=== PATIENT | female | born 1935 | race Caucasian/White ===

== ENCOUNTER 2021-01-01 18:50 | Inpatient (IN) | payer MEDICARE, MEDICAID ==
[~2021-01-01] VITALS: Ht 144.8 cm; Wt 38.6 kg
[~2021-01-01 18:50] MED LIST: LIDOcaine 1% 30ml preserv. free vial ONE
[2021-01-01] MEDS ORDERED: propofol 1000mg/100ml bottle 100 ML IV PRN (20:10)
[2021-01-01] MEDS ORDERED: fentaNYL/PF 50MCG/1 ML 2ML syringe IV ONE (20:10)
--- NOTE | 2021-01-01 20:18 | NUR ---
pt takes asa, amlodipine, synthroid and atorvastatin at home. pt family not sure of dosage as medications are at home.
[2021-01-01] MEDS ORDERED: propofol 10mg/ml 20ml vial IV ONE (21:00)
--- NOTE | 2021-01-01 21:20 | NUR ---
sling placed to left shoulder
[2021-01-02 00:09] LABS: ALANINE AMINOTRANSFERASE 21 U/L (12-78); ALBUMIN 2.6 G/DL (3.4-5.0); ALBUMIN/GLOBULIN RATIO 0.6 (1.1-1.5); ALKALINE PHOSPHATASE 85 IU/L (46-116); ANION GAP 16 (8-16); ASPARTATE AMINO TRANSFERASE 54 U/L (10-37); BILIRUBIN,TOTAL 0.4 MG/DL (0.1-1.0); BLOOD UREA NITROGEN 40 MG/DL (7-18); BUN/CREATININE RATIO 35.7 (6.6-38.0); CALCIUM 7.9 MG/DL (8.5-10.1); CHLORIDE 107 MMOL/L (99-107); CREATININE 1.12 MG/DL (0.40-0.90); GLUCOSE 122 MG/DL (70-104); POTASSIUM 4.7 MMOL/L (3.5-5.1); SODIUM 143 MMOL/L (135-145); TOTAL CARBON DIOXIDE 20.4 MMOL/L (24-32); TOTAL PROTEIN 7.1 G/DL (6.4-8.2); eGFR 46 ML/MIN
[2021-01-02 00:12] LABS: TROPONIN I < 0.04 NG/ML (0.0-0.05)
[2021-01-02 00:56] LABS: BASOPHILS # (AUTO) 0.1 X10'3 (0-0.2); MONOCYTES # (AUTO) 0.8 X10'3 (0-0.9)
[2021-01-02 00:59] LABS: BASOPHILS % (AUTO) 0.3 % (0-1); EOSINOPHILS # (AUTO) 0.3 X10'3 (0-0.9); EOSINOPHILS % (AUTO) 1.7 % (0-6); HEMATOCRIT 31.1 % (35.0-45.0); HEMOGLOBIN 9.7 g/dl (12.0-16.0); LYMPHOCYTES # (AUTO) 1.7 X10'3 (1.1-4.8); LYMPHOCYTES % (AUTO) 9.1 % (21-51); MEAN CORPUSCULAR HEMOGLOBIN 28.3 PG (27.0-31.0); MEAN CORPUSCULAR HGB CONC 31.3 g/dL (33.0-36.5); MEAN CORPUSCULAR VOLUME 90.3 FL (78-98); MEAN PLATELET VOLUME 7.9 FL (7.4-10.4); MONOCYTES % (AUTO) 4.3 % (2-12); NEUTROPHILS # (AUTO) 15.7 X10'3 (1.8-7.7); NEUTROPHILS % (AUTO) 84.6 % (42-75); RED BLOOD COUNT 3.44 X10'6 (4.20-5.60); WHITE BLOOD COUNT 18.5 X10'3 (4.5-11.0)
[2021-01-02 01:20] LABS: PLATELET COUNT 1002 X10'3 (140-440)
[2021-01-02 01:33] LABS: UA COLLECTION TYPE STRAIGHT CATH
[2021-01-02 01:34] LABS: CLARITY,URINE CLEAR (Clear); COLOR,URINE YELLOW (Yellow)
[2021-01-02 01:35] LABS: GLUCOSE, URINE NEGATIVE (Neg); KETONES,URINE 80 mg/dl (Neg); LEUKOCYTE ESTERASE ,URINE NEGATIVE (Neg); NITRITES, URINE NEGATIVE (Neg); OCCULT BLOOD,URINE NEGATIVE (Neg); PROTEIN,URINE NEGATIVE (Neg); UROBILINOGEN,URINE 0.2 E.U/dL (0.2-1.0)
[2021-01-02 02:49] LABS: TOTAL CELLS COUNTED 100
[2021-01-02 02:50] LABS: ANISOCYTOSIS 1+; GIANT PLATELET FEW; LARGE PLATELETS MODERATE; PLATELET ESTIMATE INCREASED; TEAR DROP CELLS FEW
[2021-01-02 02:51] LABS: ELLIPTOCYTES FEW
[2021-01-02] MEDS ORDERED: LEVO50TA PO (03:18)
[2021-01-02] MEDS ORDERED: ASPI81TA52 PO (03:20)
[2021-01-02] MEDS ORDERED: SIMV-42 PO (03:21)
[2021-01-02] MEDS ORDERED: AMLO-93 PO (03:22)
[2021-01-02] MEDS ORDERED: diphenhydrAMINE 25mg capsule PO PRN (03:35)
[2021-01-02] MEDS ORDERED: ipratropium/albuterol 3ml nebule NEB PRN (03:35)
[2021-01-02] MEDS ORDERED: diphenhydrAMINE 50 mg/ml inj IV PRN (03:35)
[2021-01-02] MEDS ORDERED: ondansetron 4mg rapidly disintigrating tab PO PRN (03:35)
[2021-01-02] MEDS ORDERED: HYDROmorphone inj. 0.5 MG/0.5 ML DISP.SYRIN IV PRN (03:35)
[2021-01-02] MEDS ORDERED: morphine 2 MG/ML inj. syringe IV PRN (03:35)
[2021-01-02] MEDS ORDERED: acetaminophen 650mg rectal suppository RC PRN (03:35)
[2021-01-02] MEDS ORDERED: bisacodyl 10mg suppository rectal RC PRN (03:35)
[2021-01-02] MEDS ORDERED: ondansetron/PF 4mg/2ml inj IV PRN (03:35)
[2021-01-02] MEDS ORDERED: magnesium hydroxide 30ml (MOM) UD suspension PO PRN (03:35)
[2021-01-02] MEDS ORDERED: acetaminophen 325mg tablet PO PRN (03:35)
[2021-01-02] MEDS ORDERED: mag hydrox/Alum hydrox/simeth 30ml oral suspension PO PRN (03:35)
[2021-01-02 04:01] LABS: PARTIAL THROMBOPLASTIN TIME 27 SECONDS (22-32)
[2021-01-02 04:03] LABS: HEMOGLOBIN A1C 5.6 % (4.5-6.2)
[2021-01-02] MEDS: dextrose 5%-1/2 normal saline 1,000 ML IV SCH ×3 (04:11→23:35)
[2021-01-02 04:24] LABS: LIPASE 197 U/L (73-393); PHOSPHORUS 3.5 MG/DL (2.3-4.5)
[2021-01-02 04:26] LABS: CREATINE KINASE 1691 U/L (26-192)
[2021-01-02] MEDS ORDERED: ALBUTEROL INHALER 1 PUFF/90 MCG INHALER IH PRN (05:45)
--- NOTE | 2021-01-02 06:43 | NUR ---
[facility] [phone]
[2021-01-02] MEDS: dexamethasone inj 6 MG in normal saline 50ml IV soln 50 ML IV SCH (07:14)
--- NOTE | 2021-01-02 09:05 | NUR ---
SPOKE TO PTS SON ED. STATES, SHE HASNT BEEN EATING MUCH IN LAST 2 WEEKS. HE FEEDS HER TO GET SOMETHING DOWN. PT HAS BEEN COMPLAINING OF LEFT KNEE AND LEG.
[2021-01-02] MEDS: heparin, porcine 5000 units/ml vial SQ SCH ×2 (09:49→21:26)
[2021-01-02] MEDS: aspirin 81mg, enteric-coated 1 TAB TABLET.DR PO SCH (09:49)
[2021-01-02] MEDS: docusate sod 100mg capsule PO SCH ×2 (09:49→21:25)
[2021-01-02] MEDS: levoTHYROXINE 25mcg tablet PO SCH (09:50)
[2021-01-02] MEDS: azithromycin/NS 500mg/250ml 250 ML IV SCH (09:50)
[2021-01-02] MEDS: amLODIPine 5mg tablet PO SCH (09:50)
[2021-01-02] MEDS: CefTRIAXone/D5W-Rocephin 1gm 50 ML IV SCH (09:51)
[2021-01-02] MEDS: lisinopril 20mg tablet PO SCH (09:52)
[2021-01-02] MEDS: pantoprazole 40mg Tablet.DR PO SCH (09:57)
[2021-01-02] MEDS: HYDROcodone/acetaminophen 5mg/325mg tablet PO PRN ×2 (12:34→21:38)
--- NOTE | 2021-01-02 17:09 | NUR ---
RENETTA BEDOYA (SON) [phone] PLEASE CALL WITH ANY CHANGES OR QUESTIONS
--- NOTE | 2021-01-02 21:21 | NUR ---
Pts IV infiltrated and iv found migrated out slightly. IV DC'd and new 20g iv to r fa placed and labs drawn. Pt with RA sats 94%. Penaloza catheter remains in place.
[2021-01-02] MEDS: lactobacillus rhamnosus 10,000 MMU CELLS/CAPSULE PO SCH (21:26)
[2021-01-02] MEDS: atorvastatin 10mg tablet PO SCH (21:26)
[2021-01-02 21:44] LABS: EOSINOPHILS # (AUTO) 0.2 X10'3 (0-0.9); HEMATOCRIT 33.2 % (35.0-45.0); HEMOGLOBIN 10.4 g/dl (12.0-16.0); MEAN CORPUSCULAR HGB CONC 31.4 g/dL (33.0-36.5); RED CELL DISTRIBUTION WIDTH 16.1 % (11.5-14.5)
[2021-01-02 21:45] LABS: BASOPHILS # (AUTO) 0.2 X10'3 (0-0.2); BASOPHILS % (AUTO) 0.7 % (0-1); LYMPHOCYTES # (AUTO) 1.8 X10'3 (1.1-4.8); LYMPHOCYTES % (AUTO) 8.9 % (21-51); MEAN CORPUSCULAR HEMOGLOBIN 27.3 PG (27.0-31.0); MEAN CORPUSCULAR VOLUME 86.9 FL (78-98); MEAN PLATELET VOLUME 7.8 FL (7.4-10.4); MONOCYTES # (AUTO) 0.8 X10'3 (0-0.9); MONOCYTES % (AUTO) 3.7 % (2-12); NEUTROPHILS # (AUTO) 17.5 X10'3 (1.8-7.7); NEUTROPHILS % (AUTO) 85.7 % (42-75); RED BLOOD COUNT 3.82 X10'6 (4.20-5.60); WHITE BLOOD COUNT 20.5 X10'3 (4.5-11.0)
[2021-01-02 21:53] LABS: PLATELET COUNT 1068 X10'3 (140-440)
--- NOTE | 2021-01-02 22:03 | NUR ---
Pts son Sincere Sullivan, calling for update ([phone]). Pt lives with him. He reports Pt is at times able to make her needs known, but not always and she has been declining mentally over the past year. Pt with significant weakness and increasing falls recently. She speaks and understands minimal Welsh and speaks Israeli. He expects to be here around 11 am in the morning. He is greatful that Pt has a tracey in place. He states she uses a walker at baseline but can be unsteady and will struggle now with the left arm injury. Asked if she will need a special diet, more culturally appropriate, and he states no. Only that she has minimal appitite recently. Pt also needs her glasses at all times as she has very poor vision. Pt with stable vs and is awaiting ipa.
--- NOTE | 2021-01-02 22:16 | NUR ---
SPOKE WITH DR LEE ABOUT PT CRITICAL LAB PLATELET. DR LEE WANTS TO CONTINUE CURRENT MEDICATION REGIMEN WITHOUT ANY CHANGES AT THIS TIME IN ORDER TO GET PLATELET COUNT WNL
--- NOTE | 2021-01-02 22:16 | NUR ---
Pts son also asking me if Orthopedics had been consulted. I reviewed the notes and only saw that Dr. Samson , in admission notes, wrote that Pt may need Ortho consult. I told son I would pass this on the Day RN and if he could readdress this when he is here tomorrow.
[2021-01-02 22:17] LABS: ALANINE AMINOTRANSFERASE 25 U/L (12-78); ALBUMIN 2.9 G/DL (3.4-5.0); ALBUMIN/GLOBULIN RATIO 0.6 (1.1-1.5); ALKALINE PHOSPHATASE 87 IU/L (46-116); ANION GAP 15 (8-16); ASPARTATE AMINO TRANSFERASE 57 U/L (10-37); BILIRUBIN,TOTAL 0.4 MG/DL (0.1-1.0); BLOOD UREA NITROGEN 32 MG/DL (7-18); BUN/CREATININE RATIO 34.8 (6.6-38.0); CHLORIDE 108 MMOL/L (99-107); CREATININE 0.92 MG/DL (0.40-0.90); GLUCOSE 143 MG/DL (70-104); POTASSIUM 4.1 MMOL/L (3.5-5.1); SODIUM 146 MMOL/L (135-145); TOTAL CARBON DIOXIDE 23.2 MMOL/L (24-32); TOTAL PROTEIN 7.7 G/DL (6.4-8.2); TROPONIN I < 0.04 NG/ML (0.0-0.05); eGFR 58 ML/MIN
[2021-01-02 22:21] LABS: BANDS% (MANUAL) 6 % (0-10); LYMPHOCYTES % (MANUAL) 8 % (21-51); NEUTROPHILS % (MANUAL) 79 % (42-75); TOTAL CELLS COUNTED 100
[2021-01-02 22:22] LABS: ANISOCYTOSIS 1+; EOSINOPHILS % (MANUAL) 1 % (0-6); METAMYLEOCYTES% (MANUAL) 3 % (0-0); MONOCYTES % (MANUAL) 2 % (2-12); MYELOCYTES % (MANUAL) 1 % (0-0); PLATELET ESTIMATE INCREASED
--- NOTE | 2021-01-03 01:43 | NUR ---
Pts RA sats while sleeping 90%. placed on 2 l nc and sats 945. Otherwise vss.
[2021-01-03 06:38] LABS: BASOPHILS # (AUTO) 0.1 X10'3 (0-0.2); BASOPHILS % (AUTO) 0.7 % (0-1); EOSINOPHILS # (AUTO) 0.2 X10'3 (0-0.9); EOSINOPHILS % (AUTO) 1.1 % (0-6); HEMATOCRIT 26.4 % (35.0-45.0); HEMOGLOBIN 8.6 g/dl (12.0-16.0); LYMPHOCYTES # (AUTO) 1.4 X10'3 (1.1-4.8); LYMPHOCYTES % (AUTO) 9.1 % (21-51); MEAN CORPUSCULAR HEMOGLOBIN 28.6 PG (27.0-31.0); MEAN CORPUSCULAR HGB CONC 32.5 g/dL (33.0-36.5); MEAN CORPUSCULAR VOLUME 87.9 FL (78-98); MEAN PLATELET VOLUME 7.6 FL (7.4-10.4); MONOCYTES # (AUTO) 0.6 X10'3 (0-0.9); MONOCYTES % (AUTO) 3.8 % (2-12); NEUTROPHILS # (AUTO) 13.1 X10'3 (1.8-7.7); NEUTROPHILS % (AUTO) 85.3 % (42-75); PLATELET COUNT 813 X10'3 (140-440); RED BLOOD COUNT 3.01 X10'6 (4.20-5.60); RED CELL DISTRIBUTION WIDTH 15.8 % (11.5-14.5); WHITE BLOOD COUNT 15.4 X10'3 (4.5-11.0)
[2021-01-03 06:54] LABS: ALANINE AMINOTRANSFERASE 19 U/L (12-78); ALBUMIN 2.5 G/DL (3.4-5.0); ALBUMIN/GLOBULIN RATIO 0.7 (1.1-1.5); ALKALINE PHOSPHATASE 68 IU/L (46-116); ANION GAP 9 (8-16); ASPARTATE AMINO TRANSFERASE 40 U/L (10-37); BILIRUBIN,TOTAL 0.3 MG/DL (0.1-1.0); BLOOD UREA NITROGEN 30 MG/DL (7-18); BUN/CREATININE RATIO 34.1 (6.6-38.0); CALCIUM 7.5 MG/DL (8.5-10.1); CHLORIDE 112 MMOL/L (99-107); CHOLESTEROL 141 MG/DL (0-200); CREATININE 0.88 MG/DL (0.40-0.90); GLUCOSE 153 MG/DL (70-104); HDL CHOLESTEROL 35 MG/DL (35-60); LDL CHOLESTEROL 63 MG/DL (50-100); POTASSIUM 3.7 MMOL/L (3.5-5.1); SODIUM 144 MMOL/L (135-145); TOTAL PROTEIN 6.2 G/DL (6.4-8.2); TRIGLYCERIDES 233 MG/DL (20-135); eGFR 61 ML/MIN
[2021-01-03] MEDS: dexamethasone inj 6 MG in normal saline 50ml IV soln 50 ML IV SCH (10:56)
[2021-01-03] MEDS: pantoprazole 40mg Tablet.DR PO SCH (11:05)
[2021-01-03] MEDS: lactobacillus rhamnosus 10,000 MMU CELLS/CAPSULE PO SCH ×2 (11:06→21:37)
[2021-01-03] MEDS: aspirin 81mg, enteric-coated 1 TAB TABLET.DR PO SCH (11:06)
[2021-01-03] MEDS: docusate sod 100mg capsule PO SCH ×2 (11:06→21:38)
[2021-01-03] MEDS: heparin, porcine 5000 units/ml vial SQ SCH ×2 (11:07→21:38)
[2021-01-03] MEDS: lisinopril 20mg tablet PO SCH (11:07)
[2021-01-03] MEDS: levoTHYROXINE 25mcg tablet PO SCH (11:07)
[2021-01-03] MEDS: dextrose 5%-1/2 normal saline 1,000 ML IV SCH ×2 (11:08→21:38)
[2021-01-03] MEDS: amLODIPine 5mg tablet PO SCH (11:08)
--- NOTE | 2021-01-03 11:11 | NUR ---
Pt is awake and alert. L UE in sling. C/O pain in L UE only when moved. Placed on 8L NC due to pt's O2 sats 82 on 2L. Lungs clear superiorly, diminished and crackles at bases. +moist unproductive cough. Penaloza intact and draining clear prasanth urine. IVF D5 1/2NS @ 100ml/hour.
[2021-01-03] MEDS: CefTRIAXone/D5W-Rocephin 1gm 50 ML IV SCH (11:16)
[2021-01-03] MEDS: azithromycin/NS 500mg/250ml 250 ML IV SCH (12:06)
--- NOTE | 2021-01-03 15:15 | NUR ---
Son at bedside. Pt told her son that she was not hungry.
--- NOTE | 2021-01-03 16:45 | NUR ---
Assisted pt with lunch. She ate 20% of meal.
[2021-01-03 17:07] LABS: NUCLEATED RED BLOOD CELLS 3 /100WBC (0-0); TOTAL CELLS COUNTED 100
[2021-01-03 17:08] LABS: ANISOCYTOSIS 1+; GIANT PLATELET FEW; LARGE PLATELETS FEW; PLATELET ESTIMATE INCREASED; POLYCHROMASIA 1+
[2021-01-03 17:10] LABS: ELLIPTOCYTES 1+; TEAR DROP CELLS FEW
--- NOTE | 2021-01-03 17:58 | NUR ---
Report given to FREDDIE Robles.
[2021-01-03 18:30] VITALS: BP 138/62
--- NOTE | 2021-01-03 18:44 | NUR ---
Care released to Lindy FRAZIER
--- NOTE | 2021-01-03 18:50 | NUR ---
Patient in room ORTHO 4010. I have received report from Margaret FRAZIER and had the opportunity to ask questions and assume patient care.
--- NOTE | 2021-01-03 21:30 | NUR ---
Pt speaks Cambodian, per pt and family request son Ed able to translate. I called Ed by phone with number provided in the chart. I updated him on his moms care and was able to go over the medications orders for her. He was able to translate this to the patient, using the hospital phone at bedside. She accepted and had the chance to ask questions. I also was able to address any other needs at this time, the patient states she is comfortable and ready to go to sleep. Son Ed said to call for any further needs or change in his moms status.
[2021-01-03] MEDS: atorvastatin 10mg tablet PO SCH (21:37)
[2021-01-03 22:00] VITALS: BP 127/63
[2021-01-04 02:00] VITALS: BP 138/74
[2021-01-04] MEDS: dextrose 5%-1/2 normal saline 1,000 ML IV SCH ×2 (05:41→17:17)
--- NOTE | 2021-01-04 06:20 | NUR ---
Problems reprioritized. Patient report given, questions answered & plan of care reviewed with Yue FRAZIER.
[2021-01-04 07:00] VITALS: BP 128/90
[2021-01-04 07:35] LABS: BASOPHILS # (AUTO) 0.1 X10'3 (0-0.2); BASOPHILS % (AUTO) 0.4 % (0-1); EOSINOPHILS # (AUTO) 0.2 X10'3 (0-0.9); HEMATOCRIT 27.9 % (35.0-45.0); LYMPHOCYTES # (AUTO) 1.7 X10'3 (1.1-4.8); LYMPHOCYTES % (AUTO) 10.4 % (21-51); MEAN CORPUSCULAR HEMOGLOBIN 28.3 PG (27.0-31.0); MEAN CORPUSCULAR HGB CONC 32.1 g/dL (33.0-36.5); MEAN PLATELET VOLUME 7.4 FL (7.4-10.4); MONOCYTES # (AUTO) 0.5 X10'3 (0-0.9); MONOCYTES % (AUTO) 3.1 % (2-12); NEUTROPHILS # (AUTO) 13.6 X10'3 (1.8-7.7); NEUTROPHILS % (AUTO) 85.1 % (42-75); PLATELET COUNT 792 X10'3 (140-440); RED BLOOD COUNT 3.17 X10'6 (4.20-5.60); RED CELL DISTRIBUTION WIDTH 15.9 % (11.5-14.5)
[2021-01-04 07:51] LABS: ALANINE AMINOTRANSFERASE 18 U/L (12-78); ALBUMIN 2.4 G/DL (3.4-5.0); ALBUMIN/GLOBULIN RATIO 0.6 (1.1-1.5); ALKALINE PHOSPHATASE 70 IU/L (46-116); ANION GAP 7 (8-16); ASPARTATE AMINO TRANSFERASE 33 U/L (10-37); BILIRUBIN,TOTAL 0.3 MG/DL (0.1-1.0); BLOOD UREA NITROGEN 20 MG/DL (7-18); BUN/CREATININE RATIO 21.5 (6.6-38.0); CALCIUM 7.2 MG/DL (8.5-10.1); CHLORIDE 108 MMOL/L (99-107); CREATININE 0.93 MG/DL (0.40-0.90); GLUCOSE 113 MG/DL (70-104); POTASSIUM 3.6 MMOL/L (3.5-5.1); SODIUM 137 MMOL/L (135-145); TOTAL CARBON DIOXIDE 21.6 MMOL/L (24-32); TOTAL PROTEIN 6.3 G/DL (6.4-8.2); eGFR 57 ML/MIN
[2021-01-04] MEDS: pantoprazole 40mg Tablet.DR PO SCH (07:52)
[2021-01-04] MEDS: docusate sod 100mg capsule PO SCH ×2 (07:52→20:47)
[2021-01-04] MEDS: amLODIPine 5mg tablet PO SCH (07:52)
[2021-01-04] MEDS: aspirin 81mg, enteric-coated 1 TAB TABLET.DR PO SCH (07:52)
[2021-01-04] MEDS: levoTHYROXINE 25mcg tablet PO SCH (07:52)
[2021-01-04] MEDS: lactobacillus rhamnosus 10,000 MMU CELLS/CAPSULE PO SCH ×2 (07:52→20:47)
[2021-01-04] MEDS: heparin, porcine 5000 units/ml vial SQ SCH ×2 (07:53→20:48)
[2021-01-04] MEDS: dexamethasone inj 6 MG in normal saline 50ml IV soln 50 ML IV SCH (07:53)
[2021-01-04] MEDS: lisinopril 20mg tablet PO SCH (07:53)
[2021-01-04 09:04] LABS: NUCLEATED RED BLOOD CELLS 2 /100WBC (0-0); PLATELET ESTIMATE INCREASED; TOTAL CELLS COUNTED 100
[2021-01-04 09:10] LABS: GIANT PLATELET FEW; LARGE PLATELETS FEW
[2021-01-04 09:15] LABS: ELLIPTOCYTES 1+
[2021-01-04 09:16] LABS: TEAR DROP CELLS FEW
[2021-01-04 09:17] LABS: POLYCHROMASIA FEW
[2021-01-04] MEDS: CefTRIAXone/D5W-Rocephin 1gm 50 ML IV SCH (09:48)
[2021-01-04 11:00] VITALS: BP 119/55
[2021-01-04] MEDS: azithromycin/NS 500mg/250ml 250 ML IV SCH (11:42)
--- NOTE | 2021-01-04 12:26 | NUR ---
POC updated with Son ED
[2021-01-04 14:00] VITALS: BP 114/50
--- NOTE | 2021-01-04 14:42 | NUR ---
Malnutrition consult: Pt admitted s/p fall w/ general weakness and reportedly not eating as well as she used to. Difficulty obtaining accurate hx as pt is non-danish speaking. It has been reported by Pt's son that she has not been eating well in the last 2 weeks; which is likely d/t covid. Weakness is to L arm injury, no previous wt hx though pt is 100% ideal body weight. No edema noted. Per RN, pt does not appear to be cachectic. At this time pt does not meat minimum criteria for malnutrition Will continue to monitor. Addendum: 01/04/21 at [address] Amended: Links added.
[2021-01-04 18:00] VITALS: BP 123/53
--- NOTE | 2021-01-04 18:23 | NUR ---
Problems reprioritized. Patient report given, questions answered & plan of care reviewed with FREDDIE Israel.
--- NOTE | 2021-01-04 18:37 | NUR ---
Patient in room ORTHO 4010. I have received report from Tierra FRAZIER and had the opportunity to ask questions and assume patient care.
[2021-01-04] MEDS: atorvastatin 10mg tablet PO SCH (20:47)
[2021-01-04 22:00] VITALS: BP 137/65
[2021-01-05 02:00] VITALS: BP 128/58
[2021-01-05] MEDS: dextrose 5%-1/2 normal saline 1,000 ML IV SCH ×3 (03:07→23:25)
--- NOTE | 2021-01-05 06:34 | NUR ---
Problems reprioritized. Patient report given, questions answered & plan of care reviewed with Annemarie FRAZIER.
--- NOTE | 2021-01-05 06:47 | NUR ---
Patient in room ORTHO 4010. I have received report from Lindy FRAZIER and had the opportunity to ask questions and assume patient care.
[2021-01-05 07:00] VITALS: BP 140/65
[2021-01-05 07:28] LABS: EOSINOPHILS # (AUTO) 0.2 X10'3 (0-0.9); EOSINOPHILS % (AUTO) 1.3 % (0-6); HEMOGLOBIN 9.2 g/dl (12.0-16.0); MONOCYTES # (AUTO) 0.4 X10'3 (0-0.9)
[2021-01-05 07:30] LABS: BASOPHILS % (AUTO) 0.3 % (0-1); HEMATOCRIT 29.3 % (35.0-45.0); LYMPHOCYTES # (AUTO) 1.5 X10'3 (1.1-4.8); LYMPHOCYTES % (AUTO) 11.1 % (21-51); MEAN CORPUSCULAR HEMOGLOBIN 27.8 PG (27.0-31.0); MEAN CORPUSCULAR HGB CONC 31.3 g/dL (33.0-36.5); MEAN CORPUSCULAR VOLUME 88.8 FL (78-98); MEAN PLATELET VOLUME 7.9 FL (7.4-10.4); MONOCYTES % (AUTO) 3.2 % (2-12); NEUTROPHILS # (AUTO) 11.5 X10'3 (1.8-7.7); NEUTROPHILS % (AUTO) 84.1 % (42-75); PLATELET COUNT 835 X10'3 (140-440); WHITE BLOOD COUNT 13.7 X10'3 (4.5-11.0)
[2021-01-05 08:07] LABS: ALANINE AMINOTRANSFERASE 21 U/L (12-78); ALBUMIN 2.4 G/DL (3.4-5.0); ALBUMIN/GLOBULIN RATIO 0.6 (1.1-1.5); ALKALINE PHOSPHATASE 71 IU/L (46-116); ANION GAP 14 (8-16); ASPARTATE AMINO TRANSFERASE 30 U/L (10-37); BILIRUBIN,TOTAL 0.3 MG/DL (0.1-1.0); BLOOD UREA NITROGEN 11 MG/DL (7-18); BUN/CREATININE RATIO 13.8 (6.6-38.0); CALCIUM 7.2 MG/DL (8.5-10.1); CHLORIDE 109 MMOL/L (99-107); GLUCOSE 106 MG/DL (70-104); POTASSIUM 3.5 MMOL/L (3.5-5.1); SODIUM 143 MMOL/L (135-145); TOTAL CARBON DIOXIDE 20.3 MMOL/L (24-32); TOTAL PROTEIN 6.2 G/DL (6.4-8.2); eGFR 68 ML/MIN
[2021-01-05 08:29] LABS: NUCLEATED RED BLOOD CELLS 2 /100WBC (0-0); TOTAL CELLS COUNTED 100
[2021-01-05 08:31] LABS: ELLIPTOCYTES 1+; PLATELET ESTIMATE INCREASED; POLYCHROMASIA 1+; TEAR DROP CELLS 1+
[2021-01-05] MEDS: dexamethasone inj 6 MG in normal saline 50ml IV soln 50 ML IV SCH (08:49)
[2021-01-05] MEDS: aspirin 81mg, enteric-coated 1 TAB TABLET.DR PO SCH (08:50)
[2021-01-05] MEDS: amLODIPine 5mg tablet PO SCH (08:50)
[2021-01-05] MEDS: levoTHYROXINE 25mcg tablet PO SCH (08:50)
[2021-01-05] MEDS: lisinopril 20mg tablet PO SCH (08:50)
[2021-01-05] MEDS: pantoprazole 40mg Tablet.DR PO SCH (08:51)
[2021-01-05] MEDS: docusate sod 100mg capsule PO SCH ×2 (08:51→20:15)
[2021-01-05] MEDS: heparin, porcine 5000 units/ml vial SQ SCH ×2 (08:51→20:15)
[2021-01-05] MEDS: lactobacillus rhamnosus 10,000 MMU CELLS/CAPSULE PO SCH ×2 (08:51→20:15)
[2021-01-05] MEDS: CefTRIAXone/D5W-Rocephin 1gm 50 ML IV SCH (10:09)
[2021-01-05] MEDS: azithromycin/NS 500mg/250ml 250 ML IV SCH (10:10)
[2021-01-05] MEDS ORDERED: ALBU6.7H9 IH (10:52)
[2021-01-05] MEDS ORDERED: LISI20TA28 PO (10:52)
[2021-01-05] MEDS ORDERED: LACT1CAP26 PO (10:52)
[2021-01-05] MEDS ORDERED: METH4TAB81 PO (10:53)
[2021-01-05] MEDS ORDERED: HYDR-3964 PO (10:53)
[2021-01-05] MEDS ORDERED: AZIT500T9 PO (10:53)
--- NOTE | 2021-01-05 15:23 | NUR ---
O2 Sat at rest on room air:87_% If below 89%: Recovery O2 Sat at rest on _4_LPM:_95_%:___% via (mask/nasal cannula, etc..) No further documentation is necessary. If O2 Sat did not drop below 89% on room air,ambulate patient on room air. O2 Sat while ambulating on room air:___% Recovery O2 Sat while ambulating on ___LPM:___% No further documentation is necessary. If patient does not drop below 89% while ambulating, he/she does not qualify for home O2. Pt unable to ambulate at this time
--- NOTE | 2021-01-05 16:10 | NUR ---
Patient FC was DC and removed. Pt tolerated well. We will continue to monitor for urination. Continue to monitor,.
[2021-01-05 18:00] VITALS: BP 160/70
--- NOTE | 2021-01-05 18:35 | NUR ---
Patient in room ORTHO 4010. I have received report from FREDDIE Sharpe and had the opportunity to ask questions and assume patient care.
--- NOTE | 2021-01-05 18:38 | NUR ---
Problems reprioritized. Patient report given, questions answered & plan of care reviewed with Mary FRAZIER.
[2021-01-05] MEDS: atorvastatin 10mg tablet PO SCH (20:15)
[2021-01-05 22:00] VITALS: BP 127/46
[2021-01-05] MEDS: acetaminophen 325mg tablet PO PRN (22:36)
[2021-01-06 02:00] VITALS: BP 126/74
[2021-01-06 06:00] VITALS: BP 143/46
--- NOTE | 2021-01-06 06:27 | NUR ---
Problems reprioritized. Patient report given, questions answered & plan of care reviewed with FREDDIE Jiang.
--- NOTE | 2021-01-06 06:31 | NUR ---
Patient in room ORTHO 4010. I have received report from FREDDIE Hernandez and had the opportunity to ask questions and assume patient care.
[2021-01-06 07:57] LABS: HEMOGLOBIN 9.2 g/dl (12.0-16.0); NEUTROPHILS # (AUTO) 17.1 X10'3 (1.8-7.7); WHITE BLOOD COUNT 22.1 X10'3 (4.5-11.0)
[2021-01-06 07:59] LABS: BASOPHILS # (AUTO) 0.1 X10'3 (0-0.2); BASOPHILS % (AUTO) 0.5 % (0-1); EOSINOPHILS # (AUTO) 0.3 X10'3 (0-0.9); EOSINOPHILS % (AUTO) 1.3 % (0-6); HEMATOCRIT 29.5 % (35.0-45.0); LYMPHOCYTES # (AUTO) 3.7 X10'3 (1.1-4.8); LYMPHOCYTES % (AUTO) 16.6 % (21-51); MEAN CORPUSCULAR HEMOGLOBIN 28.7 PG (27.0-31.0); MEAN CORPUSCULAR HGB CONC 31.3 g/dL (33.0-36.5); MEAN CORPUSCULAR VOLUME 91.9 FL (78-98); MEAN PLATELET VOLUME 8.4 FL (7.4-10.4); MONOCYTES # (AUTO) 0.9 X10'3 (0-0.9); MONOCYTES % (AUTO) 4.1 % (2-12); NEUTROPHILS % (AUTO) 77.5 % (42-75); PLATELET COUNT 904 X10'3 (140-440); RED BLOOD COUNT 3.21 X10'6 (4.20-5.60); RED CELL DISTRIBUTION WIDTH 16.7 % (11.5-14.5)
[2021-01-06] MEDS: lactobacillus rhamnosus 10,000 MMU CELLS/CAPSULE PO SCH ×2 (08:00→22:34)
[2021-01-06] MEDS: heparin, porcine 5000 units/ml vial SQ SCH ×2 (08:00→22:12)
[2021-01-06 08:12] LABS: ALANINE AMINOTRANSFERASE 25 U/L (12-78); ALBUMIN 2.5 G/DL (3.4-5.0); ALBUMIN/GLOBULIN RATIO 0.6 (1.1-1.5); ALKALINE PHOSPHATASE 78 IU/L (46-116); ANION GAP 16 (8-16); ASPARTATE AMINO TRANSFERASE 36 U/L (10-37); BILIRUBIN,TOTAL 0.4 MG/DL (0.1-1.0); BLOOD UREA NITROGEN 12 MG/DL (7-18); BUN/CREATININE RATIO 12.1 (6.6-38.0); CALCIUM 7.7 MG/DL (8.5-10.1); CHLORIDE 108 MMOL/L (99-107); CREATININE 0.99 MG/DL (0.40-0.90); GLUCOSE 170 MG/DL (70-104); POTASSIUM 3.7 MMOL/L (3.5-5.1); SODIUM 143 MMOL/L (135-145); TOTAL CARBON DIOXIDE 18.8 MMOL/L (24-32); TOTAL PROTEIN 6.6 G/DL (6.4-8.2); eGFR 53 ML/MIN
[2021-01-06 08:18] LABS: NUCLEATED RED BLOOD CELLS 6 /100WBC (0-0); PLATELET ESTIMATE INCREASED; TOTAL CELLS COUNTED 100
[2021-01-06 08:19] LABS: ANISOCYTOSIS 1+; GIANT PLATELET FEW; LARGE PLATELETS MODERATE
[2021-01-06 08:20] LABS: ELLIPTOCYTES 1+; POLYCHROMASIA 1+; TEAR DROP CELLS FEW
--- NOTE | 2021-01-06 08:58 | NUR ---
Page Sent PAGER ID: [phone] MESSAGE: [id number] Regarding [id number] Nate, K- WBC 22, PLT 904, NO DD, CRP..
[2021-01-06 10:00] VITALS: BP 120/76
[2021-01-06] MEDS: aspirin 81mg, enteric-coated 1 TAB TABLET.DR PO SCH (10:15)
[2021-01-06] MEDS: docusate sod 100mg capsule PO SCH ×2 (10:15→22:12)
[2021-01-06] MEDS: pantoprazole 40mg Tablet.DR PO SCH (10:15)
[2021-01-06] MEDS: levoTHYROXINE 25mcg tablet PO SCH (10:15)
[2021-01-06] MEDS: atorvastatin 10mg tablet PO SCH (10:15)
[2021-01-06] MEDS: dexamethasone inj 6 MG in normal saline 50ml IV soln 50 ML IV SCH (10:24)
[2021-01-06] MEDS: lisinopril 20mg tablet PO SCH (10:24)
[2021-01-06] MEDS: amLODIPine 5mg tablet PO SCH (10:24)
--- NOTE | 2021-01-06 11:03 | NUR ---
Page Sent PAGER ID: [phone] MESSAGE: [id number] Regarding [id number] Jake Sullivan- Unable to get IV access on pt multiple attempts by charge nurse. Pt has IV meds due. please advise.
--- NOTE | 2021-01-06 11:03 | NUR ---
Hold IV meds while awaiting Hospice consult per
--- NOTE | 2021-01-06 13:17 | NUR ---
Page Sent PAGER ID: [phone] MESSAGE: [id number] Regarding [id number] Jake Sullivan- Pt is FULL CODE & will not get hospice consult until Friday. Please call Pt son to discuss changing code status, and comfort care for the weekend. Thanks
--- NOTE | 2021-01-06 13:37 | NUR ---
Page Sent promotional table spacer PAGER ID: [phone] MESSAGE: [id number] Regarding 4010B Buck Sullivan D/Fang IV MEDS? Unable to obtain IV access
[2021-01-06 14:00] VITALS: BP 130/76
--- NOTE | 2021-01-06 15:47 | NUR ---
Dr. Santoro returned phone call for Dr. Elza Blake to D/C IV Medications
[2021-01-06] MEDS: acetaminophen 325mg tablet PO PRN (16:44)
[2021-01-06 18:00] VITALS: BP 138/75
--- NOTE | 2021-01-06 18:00 | NUR ---
Problems reprioritized. Patient report given,Svetlana, RN questions answered & plan of care reviewed with .
--- NOTE | 2021-01-06 18:00 | NUR ---
Patient in room ORTHO 4008. I have received report from Deidre FRAZIER and had the opportunity to ask questions and assume patient care. Addendum: 01/06/21 at 1938 by Svetlana Neal RN Amended: Links added.
--- NOTE | 2021-01-06 20:45 | NUR ---
Pt. asleep but arousable, denies c/o pain. O2 at 4 l via n/c and pt. noted exhibiting minimal SOB on repositioning. HOB in high fowlers for easy breathing. Bed in low position and Call light within reach. Addendum: 01/07/21 at 0327 by Svetlana Neal RN Amended: Links added.
[2021-01-07 06:00] VITALS: BP 73/53
--- NOTE | 2021-01-07 06:00 | NUR ---
Problems reprioritized. Patient report given, questions answered & plan of care reviewed with Elida FRAZIER. Addendum: 01/07/21 at 0734 by Svetlana Neal RN Amended: Links added.
[2021-01-07 07:26] LABS: BASOPHILS # (AUTO) 0.1 X10'3 (0-0.2); BASOPHILS % (AUTO) 0.7 % (0-1); MONOCYTES # (AUTO) 0.5 X10'3 (0-0.9)
[2021-01-07 07:28] LABS: EOSINOPHILS # (AUTO) 0.2 X10'3 (0-0.9); EOSINOPHILS % (AUTO) 1.4 % (0-6); HEMOGLOBIN 9.3 g/dl (12.0-16.0); LYMPHOCYTES # (AUTO) 2.2 X10'3 (1.1-4.8); LYMPHOCYTES % (AUTO) 13.4 % (21-51); MEAN CORPUSCULAR HEMOGLOBIN 28.7 PG (27.0-31.0); MEAN CORPUSCULAR HGB CONC 31.9 g/dL (33.0-36.5); MEAN CORPUSCULAR VOLUME 90.2 FL (78-98); MEAN PLATELET VOLUME 8.5 FL (7.4-10.4); MONOCYTES % (AUTO) 3.3 % (2-12); NEUTROPHILS # (AUTO) 13.2 X10'3 (1.8-7.7); NEUTROPHILS % (AUTO) 81.2 % (42-75); PLATELET COUNT 788 X10'3 (140-440); RED BLOOD COUNT 3.22 X10'6 (4.20-5.60); RED CELL DISTRIBUTION WIDTH 16.3 % (11.5-14.5); WHITE BLOOD COUNT 16.3 X10'3 (4.5-11.0)
[2021-01-07] MEDS: pantoprazole 40mg Tablet.DR PO SCH ×2 (07:30→09:42)
[2021-01-07 07:41] LABS: ALANINE AMINOTRANSFERASE 22 U/L (12-78); ALBUMIN 2.5 G/DL (3.4-5.0); ALBUMIN/GLOBULIN RATIO 0.6 (1.1-1.5); ALKALINE PHOSPHATASE 80 IU/L (46-116); ANION GAP 16 (8-16); ASPARTATE AMINO TRANSFERASE 28 U/L (10-37); BILIRUBIN,TOTAL 0.6 MG/DL (0.1-1.0); BLOOD UREA NITROGEN 17 MG/DL (7-18); BUN/CREATININE RATIO 15.9 (6.6-38.0); CHLORIDE 108 MMOL/L (99-107); CREATININE 1.07 MG/DL (0.40-0.90); GLUCOSE 171 MG/DL (70-104); POTASSIUM 3.7 MMOL/L (3.5-5.1); SODIUM 143 MMOL/L (135-145); TOTAL CARBON DIOXIDE 19.4 MMOL/L (24-32); TOTAL PROTEIN 6.7 G/DL (6.4-8.2); eGFR 49 ML/MIN
[2021-01-07] MEDS: aspirin 81mg, enteric-coated 1 TAB TABLET.DR PO SCH ×2 (08:00→09:42)
[2021-01-07] MEDS: docusate sod 100mg capsule PO SCH ×2 (08:00→09:42)
[2021-01-07] MEDS: lactobacillus rhamnosus 10,000 MMU CELLS/CAPSULE PO SCH ×2 (08:00→09:42)
[2021-01-07] MEDS: amLODIPine 5mg tablet PO SCH (08:00)
[2021-01-07] MEDS: lisinopril 20mg tablet PO SCH (08:00)
[2021-01-07] MEDS: levoTHYROXINE 25mcg tablet PO SCH ×2 (08:00→09:42)
[2021-01-07 08:19] LABS: ANISOCYTOSIS 1+; NUCLEATED RED BLOOD CELLS 11 /100WBC (0-0); PLATELET ESTIMATE INCREASED; TOTAL CELLS COUNTED 100
[2021-01-07 08:20] LABS: ELLIPTOCYTES 1+; HYPOCHROMASIA 1+; POLYCHROMASIA 2+; TEAR DROP CELLS 1+
--- NOTE | 2021-01-07 08:53 | NUR ---
Initial: Pt admitted s/p fall w/ general weakness and reportedly not eating as well as she used to per EMR. Per RN, pt has been made DNR w/ comfort care on 01/06. Pt eating mostly 25% of meals on Regular diet partially meeting needs. LBM 01/05. No nutritional intervention at this time, will continue to monitor. Recs: 1. Bowel care per rx Addendum: 01/07/21 at [address] Amended: Links added.
[2021-01-07 09:41] VITALS: BP 71/24
[2021-01-07] MEDS: heparin, porcine 5000 units/ml vial SQ SCH (09:43)
--- NOTE | 2021-01-07 09:58 | NUR ---
went in to try to get patient to take some of her medications. patient bp 71/24, patient unable to take a drink or bight of applesauce at this time. Patient had heparin shot only.
[2021-01-07 10:00] VITALS: BP 71/24
--- NOTE | 2021-01-07 10:46 | NUR ---
PAGER ID: [phone] MESSAGE: [id number] Richa Sullivan comfort care yesterday, no roxinol for pain, po not dc. Please fix this, She is moaning & grimace with reposition. Thank you FRANCIS [phone]
[2021-01-07] MEDS ORDERED: LORazepam 0.5 MG tablet PO PRN (11:55)
[2021-01-07] MEDS ORDERED: morphine ORAL 5MG/0.25 ML (Conc. morphine) oral syringe PO PRN (11:55)
--- NOTE | 2021-01-07 12:58 | NUR ---
Call to son Ed to notify him of patients decline and possibility of passing. He will speak with family regarding home and call us back.
[2021-01-07] MEDS: morphine 10mg/0.5ml (conc. morphine) oral syringe PO PRN ×3 (13:11→22:34)
--- NOTE | 2021-01-07 18:40 | NUR ---
Son remains at bedside. Ordered puree diet for breakfast. Patient has few decayed teeth, unable to chew regular diet.
[2021-01-07 22:00] VITALS: BP 126/66
--- NOTE | 2021-01-08 00:41 | NUR ---
RN IS TO DOCUMENT YES TO ALL APPLICABLE AREAS Pronouncement of : 1. Time Physician Notified: 0015 2. Date of : 01/08/21 3. Time of : 0000 4. DNR/Withdraw life support documented: Y 5. Monitor strip has been placed on chart: Y 6. Assessment process is of one-minute duration and includes following criteria: a) Patient is unresponsive to all stimuli: Y b) Pupils fixed and non-reactive: Y c) Auscultation of precordium reveals absence of heart tones: Y d) Auscultation of lungs reveals absence of breath sounds: Y e) Absence of blood pressure / all vital signs: Y f) QRS complexes are not present on monitor / EKG strip: Y g) Pacer spikes without capture: NA 4. Comments: witnessed patients last agonal breaths and was auscaltating heart when it stopped. notified. Son, Ed, notified by phone and he gave instructions for release of body to [facility]. [facility] was notified. [facility] notified. Ref # [id number]
== END 2021-01-08 01:00 | DRG 177 ==
LOC: ER 18:51 → ED HOLD 01-02 03:40 → ORTHO 4S 01-03 18:40
PROVIDERS: ADMIT Family Medicine; ATTEND Internal Medicine
PROC: 3E0T3BZ Introduction of Anesthetic Agent into Peripheral Nerves and Plexi, Percutaneous Approach (ICD-10-PCS; principal; 2021-01-01)
PROC: 0RSKXZZ Reposition Left Shoulder Joint, External Approach (ICD-10-PCS; 2021-01-01)
DX: U07.1 COVID-19 (principal); J12.82 Pneumonia due to coronavirus disease 2019; J96.01 Acute respiratory failure with hypoxia; S42.202A Unspecified fracture of upper end of left humerus, initial encounter for closed fracture; N17.9 Acute kidney failure, unspecified; M62.82 Rhabdomyolysis; E87.2 Acidosis; D64.9 Anemia, unspecified; E03.9 Hypothyroidism, unspecified; E78.00 Pure hypercholesterolemia, unspecified; E78.5 Hyperlipidemia, unspecified; E86.0 Dehydration; W01.0XXA Fall on same level from slipping, tripping and stumbling without subsequent striking against object, initial encounter; D47.3 Essential (hemorrhagic) thrombocythemia; F03.90 Unspecified dementia, unspecified severity, without behavioral disturbance, psychotic disturbance, mood disturbance, and anxiety; I12.9 Hypertensive chronic kidney disease with stage 1 through stage 4 chronic kidney disease, or unspecified chronic kidney disease; N18.9 Chronic kidney disease, unspecified; S43.005A Unspecified dislocation of left shoulder joint, initial encounter; Z51.5 Encounter for palliative care; Z66 Do not resuscitate; R26.9 Unspecified abnormalities of gait and mobility; R82.4 Acetonuria; Y93.89 Activity, other specified; Y92.89 Other specified places as the place of occurrence of the external cause; Y99.8 Other external cause status; Z79.899 Other long term (current) drug therapy; Z79.82 Long term (current) use of aspirin
CPT/HCPCS: 23650; 36415; 71045; 71250; 73020; 73030; 73564; 74176; 80053; 80061; 81003; 82550; 83036; 83605; 83690; 83735; 83880; 84100; 84443; 84484; 85007; 85025; 85610; 85730; 87040; 87081; 87635; 93005; 94760; 94799; 97161; 97530; 99151; 99291; G0378; J0456; J0696; J1100; J1644; J2001; J2704; J3010